=== PATIENT | female | born 2000 | race Caucasian/White ===

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

== ENCOUNTER 2020-03-14 11:12 | Outpatient (CLI) | payer OTHER | END 2020-03-14 11:13 | disposition home or self-care (01) | LOC: CTENTCT 11:12 | PROVIDERS: ATTEND Otolaryngology Plastic Surgery within the Head & Neck | DX: J32.9 Chronic sinusitis, unspecified (principal) | CPT/HCPCS: 70486 ==

== ENCOUNTER 2020-03-17 17:21 | Inpatient (IN) | payer OTHER ==
[2020-03-18 00:14] VITALS: BMI 25.5
--- NOTE | 2020-03-18 03:04 | PDOC.HHP ---
Hospitalist HPI - History of Present Illness sore throat History of Present Illness: Ms. Butler is a 19 year-old female with a PMHX of recurrent pharyngitis who presented to [place] [facility] for worsening throat pain and difficulty swallowing. Pt transferred to [place] for higher level care. Pt reports she previously went to [place] [facility] and was told she had a R peritonsilar abscess. At that time she was told to follow up with ENT and was scheduled for a tonsillectomy on March 27. However, pt had interval worsening of her throat pain, lacking of her jaw and difficulty swallowing which promoted her to re-present to the ED. In the ED, workup included a CT head/neck which showed narrowing of the oropha rynx due to worsening palatine and lingual tonsilitis with reactive upper cervical chain lymphadenopathy. Initial vital signs 110/62, 131, 18, 98% on RA. WBC elevated to 15.9. H/H 14.2/43. BUN/Cr 12/0.88, lactic acid 0.8. Monospot negative. AST/ALT 14/15. In [place] ED, patient received dexamethasone, IV ceftriaxone, IV clindamycin, 1L NS. Currently, pt reports her throat pain and swelling is much improved. She is able to now open her jaw more and swallow solids/liquids. She denies any respiratory distress, stridor. Denies changes in vision, dizziness, chest pain, palpitations. Denies neck pain. Patient transferred to [facility] for higher level care and ENT services. Hospitalist ROS - Review of Systems Constitutional: denies: fever, chills, sweats, weakness, malaise, other Eyes: denies: pain, vision change, conjunctivae inflammation, eyelid inflammation, redness, other ENT: reports: mouth pain, throat pain, throat swelling Respiratory: denies: cough, dry, shortness of breath, hemoptysis, SOB with excertion, pleuritic pain, sputum, wheezing, other Cardiovascular: denies: chest pain, palpitations, orthopnea, paroxysmal noc. dyspnea, edema, light headedness, other Gastrointestinal: denies: nausea, vomiting, abdominal pain, diarrhea, constipation, melena, hematochezia, other Genitourinary: denies: dysuria, frequency, incontinence, hematuria, retention, other Musculoskeletal: denies: neck pain, shoulder pain, arm pain, back pain, hand pain, leg pain, foot pain, other Skin: denies: rash, lesions, ledy, bruising, other Neurological: denies: weakness, numbness, incoordination, change in speech, confusion, seizures, other - Medication Medications: No home medications. No home allergies. Hospitalist History - Past Medical History Other Medical History: History: recurrent strep pharyngitis, depression - Past Surgical History Past Surgical History: reports: - Family History Family History: reports: no pertinent history - Social History Smoking Status: Never smoker Alcohol: reports: None Drugs: reports: none Living Situation: With Family Activity level: independent ambulation - Exam General Appearance: NAD, awake alert Eye: PERRL, anicteric sclera ENT: moist mucosa ENT - other findings: Trismus, oropharynx inflammed. Unable to visualize uvula. Neck: supple, symmetric, no JVD, no thyromegaly, no carotid bruit Neck - other findings: cervical chain lymphadenopathy Heart: RRR, no murmur, no gallops, no rubs, normal peripheral pulses Respiratory: CTAB, no wheezes, no rales, no ronchi, normal chest expansion, no tachypnea, normal percussion Gastrointestinal: soft, non-tender, non-distended, normal bowel sounds, no palpable masses, no hepatomegaly, no splenomegaly, no bruit Extremities: no cyanosis, no clubbing, no edema Skin: normal turgor, no lesions, no rashes Neurological: cranial nerve grossly intact, normal sensation to touch, no weakness, no focal deficits, no new deficit Musculoskeletal: normal tone, normal strength, no muscle wasting Psychiatric: normal affect, normal behavior, A&O x 3 Hospitalist H&P A/P - Problem (1) Tonsillitis Code(s): J03.90 - ACUTE TONSILLITIS, UNSPECIFIED Status: Acute (2) Leukocytosis Code(s): D72.829 - ELEVATED WHITE BLOOD CELL COUNT, UNSPECIFIED Status: Acute (3) Tachycardia Code(s): R00.0 - TACHYCARDIA, UNSPECIFIED Status: Acute (4) SIRS (systemic inflammatory response syndrome) Code(s): R65.10 - SIRS OF NON-INFECTIOUS ORIGIN W/O ACUTE ORGAN DYSFUNCTION Status: Acute - Plan Plan: Acute on Chronic Tonsillitis: 19F with recurrent strep pharyngitis who re-presented for worsening trismus, inability to swallow, and neck swelling found to have acute worsening of palatine tonsillitis. Initial concern for danny-tonsilar abscess however CT head/neck showed worsening palatine tonsillitis, and narrowing of the oropharynx, with no drainable abscess. WBC elevated to 15.9, pt tachycardic to 131. Lactic acid 0.8, afebrile. Monospot negative. Strep A negative. Patient received IV ceftriaxone, IV clindamycin, and 10 mg of dexamethasone at OSH. Pt reports her throat and neck swelling has significantly improved after treatment. Currently denies any respiratory distress or difficulty breathing. Able to swallow secretions without difficulty. Patient able to protect her airway currently. Dr. Garza of ENT consulted who will see patient. Reccs appreciated. PLAN: -Continue IV clindamycin 600 mg IV TID, probiotics -Continue IV ceftriaxone 1g daily -ENT consulted, Dr. Garza -Closely monitor respiratory status Sepsis: Patient meets SIRS criteria with tachycardia to 131 and elevated WBC to 15.9. Afebrile. Pt received IV ceftriaxone, IV clindamycin in ED. Lactic acid 0.8. Tachycardia now resolved. PLAN: -Follow blood cx -Continue IV abx per tonsillitis -Trend WBC, fever curve FULL CODE DVT Prophylaxis: encourage ambulation, low risk Case discussed with attending physician, Dr. Tejeda.
[2020-03-18] MEDS ORDERED: Acetaminophen 325 MG TAB PO PRN (04:21)
[2020-03-18] MEDS: cefTRIAXone\\ROCEPHIN 1 GM in Sodium Chloride 0.9% 100 ML IVPB SCH (04:47)
[2020-03-18 05:21] LABS: Anion Gap 13 mmol/L (10-20); BUN (Urea Nitrogen) 10 mg/dL (8.4-21.0); Calc. Creatinine Clearance 128 mL/min (70-130); Calcium 9.1 mg/dL (7.8-10.44); Carbon Dioxide 25 mmol/L (22-29); Chloride 106 mmol/L (98-107); Estimated GFR-MDRD Greater than 90; Glucose 144 mg/dL (70-105); Potassium 4.6 mmol/L (3.5-5.1); Sodium 139 mmol/L (136-145)
[2020-03-18] MEDS: Clindamycin/D5W 600 MG in Premix Bag 1 BAG IVPB SCH ×4 (05:28→23:50)
[2020-03-18 05:33] LABS: Band 3 % (5-11); Hemoglobin 13.6 g/dL (12.0-16.0); Lymphocytes 7 % (28-48); MDiff Complete? YES; Mean Corpuscular HGB CONC 33.3 g/dL (32.0-36.0); Mean Corpuscular Volume 92.9 fL (78.0-98.0); Mean Platelet Volume 7.9 fL (7.4-10.4); Monocytes 3 % (0-4); Neutrophil 87 % (31-61); Platelet Count 218 thou/uL (130-400); RBC Distribution Width 10.8 % (11.5-14.5); RBC Morphology Normal; Red Blood Cell (RBC) Count 4.41 mill/uL (4.00-5.20); White Blood Cell (WBC) Count 10.5 thou/uL (4.8-10.8)
[2020-03-18] MEDS: Saccharomyces boulardii 250 MG CAP PO SCH (08:46)
[2020-03-18 12:01] LABS: SARS-CoV-2 MS2 Positive; SARS-CoV-2 N Gene Negative; SARS-CoV-2 S Gene Negative; SARS-CoV-2 by NAA Not Detected (NotDetected); SARS-CoV-2 orf1ab Negative
--- NOTE | 2020-03-18 12:40 | PDOC.HOSPP ---
- Subjective Encounter Date: 03/18/20 Encounter Time: 09:15 Subjective: throat feels better but still has pain no trouble breathing - Objective Vital Signs & Weight: Vital Signs (12 hours) Temp Pulse Resp BP Pulse Ox 03/18/20 11:17 97.6 F 85 16 111/66 99 03/18/20 07:58 97.6 F 95 16 102/58 L 98 03/18/20 03:35 98.3 F 91 16 109/77 98 Weight Weight 130 lb 12.8 oz I&O: 03/17/20 03/18/20 03/19/20 06:59 06:59 06:59 Intake Total 150 Balance 150 Result Diagrams: 03/18/20 04:53 03/18/20 04:53 Hospitalist ROS - Medication Medications: Active Medications Generic Name Dose Route Start Last Admin Trade Name Freq PRN Reason Stop Dose Admin Clindamycin Phosphate/Dextrose 50 mls @ 100 mls/hr 03/18/20 06:00 03/18/20 11:59 600 mg/ Device IVPB 50 mls Q6HR ROHIT Administration Ceftriaxone Sodium 1 gm/ 100 mls @ 200 mls/hr 03/18/20 05:00 03/18/20 04:47 Sodium Chloride IVPB 100 mls Q24HR ROHIT Administration Saccharomyces Boulardii 250 mg 03/18/20 09:00 03/18/20 08:46 Saccharomyces Boulardii 250 Mg Cap PO Not Given DAILY ROHIT - Exam General Appearance: awake alert Eye: PERRL, anicteric sclera ENT: no oropharyngeal lesions, dry oral mucosa Neck - other findings: HANY node+ b/l Heart: RRR, no murmur Respiratory: no wheezes, no rales Gastrointestinal: soft, non-tender, non-distended, normal bowel sounds Extremities: no cyanosis, no edema Neurological: cranial nerve grossly intact, no focal deficits Psychiatric: normal affect, A&O x 3 Hosp A/P (1) SIRS (systemic inflammatory response syndrome) Code(s): R65.10 - SIRS OF NON-INFECTIOUS ORIGIN W/O ACUTE ORGAN DYSFUNCTION Status: Acute (2) Tonsillitis Code(s): J03.90 - ACUTE TONSILLITIS, UNSPECIFIED Status: Acute - Plan d/w Dr.Steven Ramirez, plan is for antibiotics with anti-inflammatory meds now rest for 3 weeks then surgery, has h/o of rec tonsillitis start liq diet, may advance as tolerated continue ceftriaxone and clindamycin along with motrin tx to med floor monospot is -ve
[2020-03-18] MEDS ORDERED: methylPREDNISolone Sod Succ 40 MG VIAL IVP SCH (14:30)
[2020-03-18] MEDS: Ibuprofen 600 MG TAB PO SCH (21:33)
[2020-03-18] MEDS: methylPREDNISolone Sod Succ 40 MG VIAL IVP SCH (21:33)
[2020-03-19] MEDS: cefTRIAXone\\ROCEPHIN 1 GM in Sodium Chloride 0.9% 100 ML IVPB SCH (04:22)
[2020-03-19] MEDS: Clindamycin/D5W 600 MG in Premix Bag 1 BAG IVPB SCH ×2 (05:07→12:58)
[2020-03-19] MEDS: methylPREDNISolone Sod Succ 40 MG VIAL IVP SCH (06:14)
[2020-03-19] MEDS: Ibuprofen 600 MG TAB PO SCH (06:15)
[2020-03-19 07:55] VITALS: BP 103/51; TEMP 98.4
[2020-03-19] MEDS: Saccharomyces boulardii 250 MG CAP PO SCH (08:24)
--- NOTE | 2020-03-20 14:26 | DIS ---
DATE OF ADMISSION: 03/18/2020 DATE OF DISCHARGE: 03/19/2020 DISCHARGE DISPOSITION: Home. PRIMARY DISCHARGE DIAGNOSES: Acute tonsillitis; difficulty swallowing secondary to enlarged tonsils, resolved. PROCEDURES DONE DURING HOSPITALIZATION: The patient has had CT soft tissue and neck done on 03/17/2020, which showed worsening palatine and lingual tonsillitis and reactive upper cervical chain lymphadenopathy. Blood cultures x2, no growth. Strep group A throat swab was negative. Cultures were negative for Streptococcus. Had a white count of 15 on the day of admission with discharge numbers of 10. BUN 10, creatinine 0.6. Serum test was negative. COVID-19 PCR was not detected on 03/18/2020. A mono screen was negative on 03/17/2020. DISCHARGE PLAN: The patient to follow up with Dr. Joe Ramirez in 1 week. BRIEF COURSE DURING HOSPITALIZATION: The patient initially got admitted on the with complaints of trouble swallowing and throat pain. She has known history of recurrent tonsillitis. She in fact had seen Dr. Joe Ramirez and the plan was to have tonsillectomy on the 27 of March, but her symptoms got worse and the patient was hospitalized. She was gently hydrated and placed on IV antibiotics. She also had 2 doses of steroids during her stay here. The patient has responded well to above measures. She is able to tolerate solid food prior to discharge. I have spoken to Dr. Joe Ramirez and the plan is to give her antibiotics for a week and to calm her tonsils for now and take her up for tonsillectomy in 3 weeks from now. I have advised the patient to follow up with Dr. Joe Ramirez in a week. She is otherwise hemodynamically stable, ambulating and eating well prior to discharge. Please note, I have seen and examined the patient on the day of discharge. Job ID: [id number] [facility]
== END 2020-03-19 12:17 | disposition home or self-care (01) | DRG 872 ==
LOC: INTOOBSV 23:45 → 2NO 23:45 → ONC 03-18 13:54 → OBSVTOIN 03-18 14:03
PROVIDERS: ADMIT Internal Medicine; ATTEND Internal Medicine
DX: A41.9 Sepsis, unspecified organism (principal); J03.90 Acute tonsillitis, unspecified; R65.10 Systemic inflammatory response syndrome (SIRS) of non-infectious origin without acute organ dysfunction; D72.829 Elevated white blood cell count, unspecified; Z20.828 Contact with and (suspected) exposure to other viral communicable diseases
CPT/HCPCS: 36415; 80048; 85025; 87635; 96374; 96375; 96376; G0378; J0696; J2920; J3490; U0003

== ENCOUNTER 2020-03-29 06:51 | Outpatient (CLI) | payer OTHER ==
[2020-03-29 12:33] LABS: BHCG - Serum Negative (NEGATIVE); Pregs Control Background? CLEAR/WHITE (CLR/WHITE); Pregs Control Bar Appear? YES (CONTROL BAR)
[2020-03-29 18:14] LABS: SARS-CoV-2 MS2 Positive; SARS-CoV-2 N Gene Negative; SARS-CoV-2 S Gene Negative; SARS-CoV-2 by NAA Not Detected (NotDetected); SARS-CoV-2 orf1ab Negative
== END 2020-03-29 06:52 | disposition home or self-care (01) ==
LOC: LABBT 06:51
PROVIDERS: ATTEND Otolaryngology Plastic Surgery within the Head & Neck
DX: Z01.812 Encounter for preprocedural laboratory examination (principal); J32.9 Chronic sinusitis, unspecified; J32.0 Chronic maxillary sinusitis; J32.2 Chronic ethmoidal sinusitis; J30.9 Allergic rhinitis, unspecified; J34.3 Hypertrophy of nasal turbinates; J35.1 Hypertrophy of tonsils; J35.2 Hypertrophy of adenoids; R59.0 Localized enlarged lymph nodes; Z20.828 Contact with and (suspected) exposure to other viral communicable diseases
CPT/HCPCS: 84703; 85014; 87635; U0003

== ENCOUNTER 2020-04-03 06:29 | Day surgery (SDC) | payer OTHER ==
[2020-04-02 14:07] VITALS: BMI 26.4
[2020-04-03] MEDS ORDERED: Bacitracin Zinc Ointment 30 gm TUBE ONE (08:23)
[2020-04-03] MEDS ORDERED: EPINEPHrine 1 MG/ML AMP ONE (08:23)
[2020-04-03] MEDS ORDERED: AFRIN NASAL MIST 15 ML BOT ONE (08:23)
[2020-04-03] MEDS ORDERED: Lidocaine 1% w/Epinephrine 1:100K 20 ML VIAL ONE (08:23)
[2020-04-03] MEDS ORDERED: Fentanyl 100 MCG/2 ML VIAL ONE ×2 (08:26→09:35)
[2020-04-03] MEDS ORDERED: Midazolam HCl 2 mg/2 ml Vial ONE (08:26)
[2020-04-03] MEDS ORDERED: Lidocaine 4% Topical Sol 50 ML BOT ONE (08:26)
[2020-04-03] MEDS ORDERED: Lidocaine 1% PF 5 ML VIAL ONE (10:52)
[2020-04-03] MEDS ORDERED: Dexamethasone 20 MG/5 ML VIAL ONE (10:52)
[2020-04-03] MEDS ORDERED: PROPOFOL 200 MG/20 ML VIAL ONE (10:52)
[2020-04-03] MEDS ORDERED: Succinylcholine Chloride 20 MG/ML 10 ml SYRINGE FS ONE (10:52)
[2020-04-03] MEDS ORDERED: Ondansetron PF 4 MG/2 ML Vial ONE (10:52)
[2020-04-03] MEDS ORDERED: Hydrocodone-Acetamin 15 ML UDCUP ONE (11:30)
--- NOTE | 2020-04-04 08:40 | OP ---
DATE OF PROCEDURE: 04/03/2020 PREOPERATIVE DIAGNOSES: 1. Chronic rhinosinusitis. 2. Chronic adenotonsillitis. 3. Adenotonsillar hypertrophy. 4. Bilateral inferior turbinate hypertrophy. 5. Nasal obstruction. POSTOPERATIVE DIAGNOSES: 1. Chronic rhinosinusitis. 2. Chronic adenotonsillitis. 3. Adenotonsillar hypertrophy. 4. Bilateral inferior turbinate hypertrophy. 5. Nasal obstruction. PROCEDURES PERFORMED: 1. Bilateral endoscopic sinus surgery, total ethmoidectomies. 2. Bilateral endoscopic sinus surgery, maxillary antrostomies. 3. Bilateral endoscopic sinus surgery, frontal sinusotomies. 4. Tonsillectomy and adenoidectomy. 5. Bilateral inferior turbinate submucosal resection. ESTIMATED BLOOD LOSS: 20 mL. COMPLICATIONS: None. ANESTHESIA: GETA. DESCRIPTION OF PROCEDURE: After consent was obtained, the patient was identified, brought to the operating room, and placed on the operating table in the supine position. General endotracheal anesthesia and intravenous access were obtained and we proceeded with positioning the patient for oropharyngeal surgery. Oropharyngeal exposure was obtained with a Misbah-Braulio mouth gag after a head drape was placed and secured with a towel clip. The Misbah-Braulio mouth gag was then suspended from the Mejia tray and palatal elevation was achieved with a red rubber catheter. The right tonsil was addressed first. We used a curved Allis to grasp the tonsil and retract it medially as an anterior pillar incision was made. The retrotonsillar fascial plane was then established and blunt dissection was performed with the suction cautery. Blood vessels were anticipated, identified, and cauterized as they were encountered. Ultimately, dissection was carried to the posterior tonsillar pillar mucosa which was incised hemostatically, as well as the base of tongue connection. The tonsil was then passed off as a specimen and bleeding points within the tonsillar bed were cauterized under direct visualization. We subsequently turned our attention to the contralateral side, where using a similar technique, a near identical procedure was performed. Again, the tonsil was grasped and retracted medially with a curved Allis. The retrotonsillar fascial plane was established and while the anterior pillar was retracted medially. The hemostatic blunt dissection of the tonsil with a suction cautery was performed with blood vessels anticipated, identified, and cauterized as they were encountered. Again, dissection continued to the base of tongue and posterior tonsillar pillar mucosa which was incised in a hemostatic fashion. The tonsillar beds were then carefully inspected and bleeding points were identified and cauterized with a suction cautery. After this portion of the procedure, hemostasis was completely obtained. Under direct mirror visualization, we visualized the adenoid pad. Under direct mirror visualization, we removed the bulk of the adenoid tissue with the adenoid curette. We then packed the nasopharynx for an appropriate period of time with Lyz-Bofzqoduve-swrhzckoa tonsillar sponges. After a period of observation, we removed the pack. Under indirect mirror visualization, we obtained hemostasis and vaporization of residual adenoid tissue with electrocautery. The patient's oral cavity was copiously irrigated with iced saline and subsequently suctioned. After completion of the procedure, the nasal cavity and oropharynx were irrigated and suctioned as were the gastric contents. The patient was then awakened and transferred to the recovery room where the patient remained in stable condition prior to discharge to Day Stay. Following this, the patient was placed in a beach chair position and was prepped and draped for standard nasal procedure. Following this, the 0-degree endoscope was advanced into the middle meatus. The middle turbinates were then medialized, and the uncinate process was then visualized bilaterally. Following this, the uncinate process was anteriorly fractured using a ball-ended probe and the uncinate process was removed using the microdebrider bilaterally. Following this, the natural maxillary sinus ostia was visualized and was gently widened using a ball-ended probe, curved microdebrider, and straight Blakesley forceps bilaterally. Following this, the ethmoidal bulla was identified and was punctured on its medial and inferior aspects using the microdebrider and was removed using the microdebrider and up-biting Blakesley forceps bilaterally. Following this, the grand lamella was identified and was then punctured using the 0-degree microdebrider into the posterior ethmoidal cells bilaterally. Working from posteriorly to anteriorly, the ethmoidal cells were opened in a mucosal sparing technique keeping the cribriform plate in view. Following this, the 45-degree endoscope and the curved microdebrider blade were then used to identify the frontal sinus ostia, which was then widened using a 40-degree microdebrider blade bilaterally. Following this, the inferior turbinates were identified and were punctured on the anterior-inferior aspect using the submucosal microdebrider. Submucosal resection was performed on the anterior and inferior portions of the inferior turbinates bilaterally. Following this, the 45-degree endoscope was used to visualize the polypoid tissue and gelatinous material that was visualized in the maxillary sinuses. The curved suction and irrigation devices were used to remove and clean these areas. The patient tolerated the procedure well. Job ID: [id number]
== END 2020-04-03 12:28 | disposition home or self-care (01) ==
LOC: SDC 06:29
PROVIDERS: ATTEND Otolaryngology Plastic Surgery within the Head & Neck
PROC: 0CTQXZZ Resection of Adenoids, External Approach (ICD-10-PCS; principal; 2020-04-03)
PROC: 099R8ZZ Drainage of Left Maxillary Sinus, Via Natural or Artificial Opening Endoscopic (ICD-10-PCS; principal; 2020-04-03)
PROC: 099S8ZZ Drainage of Right Frontal Sinus, Via Natural or Artificial Opening Endoscopic (ICD-10-PCS; principal; 2020-04-03)
PROC: 09TU8ZZ Resection of Right Ethmoid Sinus, Via Natural or Artificial Opening Endoscopic (ICD-10-PCS; principal; 2020-04-03)
PROC: 099T8ZZ Drainage of Left Frontal Sinus, Via Natural or Artificial Opening Endoscopic (ICD-10-PCS; principal; 2020-04-03)
PROC: 09TL4ZZ Resection of Nasal Turbinate, Percutaneous Endoscopic Approach (ICD-10-PCS; principal; 2020-04-03)
PROC: 09TV8ZZ Resection of Left Ethmoid Sinus, Via Natural or Artificial Opening Endoscopic (ICD-10-PCS; principal; 2020-04-03)
PROC: 099Q8ZZ Drainage of Right Maxillary Sinus, Via Natural or Artificial Opening Endoscopic (ICD-10-PCS; principal; 2020-04-03)
PROC: 0CTPXZZ Resection of Tonsils, External Approach (ICD-10-PCS; principal; 2020-04-03)
DX: J32.8 Other chronic sinusitis (principal); J30.9 Allergic rhinitis, unspecified; J34.3 Hypertrophy of nasal turbinates; J35.01 Chronic tonsillitis; J34.89 Other specified disorders of nose and nasal sinuses
CPT/HCPCS: 88304; J0171; J1100; J2250; J2405; J2704; J3010